=== PATIENT | female | born 1975 | race Asian ===

== ENCOUNTER → 2020-12-01 | Day surgery (SDC) | payer BC ==
[2020-12-01] VITALS (9 sets, daily range): BP systolic 128–147; BP diastolic 69–92
[~2020-12-01] VITALS: Ht 157.5 cm; Wt 58.1 kg
[~2020-12-01] MED LIST: BSS 15ml BTL ONE; BSS 500ml btl ONE; Bupivacaine 0.75% 30ml vial INJ ONE; Cyclopentolate 2% Opth Sol LEFT EYE ONE; EPINEPHrine 1mg/1ml Amp ONE; Goniotaire 2.5% Opth Soln - 15ml ONE; Hyaluronidase 150 units/ml vial ONE; LR 1000ml ONE; Lidocaine 1% MPF 10mg/ml 5ml ONE; Lidocaine 4% Amp 5ml ONE; Metoclopramide 10mg/2ml Inj IVP PRN; Metoclopramide 10mg/2ml Inj ONE; Midazolam 2mg/2ml Inj ONE; NS Irrig 1000ml ONE; Phenylephrine 2.5% Op 2ml Soln LEFT EYE ONE; Povidone-Iodine 5% opth solution ONE; Sterile Water Irrig 1000ml IRRIG ONE; Tetracaine 0.5% Opth 4ml Soln ONE; Tropicamide 1% Opth 15ml Soln LEFT EYE ONE; Vigamox Opth Soln 3ml LEFT EYE ONE; fentaNYL 100 mcg/2 mL IV ONE; fentaNYL 100 mcg/2 mL IV PRN
[2020-12-01 15:30] LABS: APPEARANCE,URINE CLEAR; BILIRUBIN, URINE NEGATIVE (NEGATIVE); COLOR,URINE PALE YELLOW; GLUCOSE, URINE (UA) NEGATIVE (NEGATIVE); KETONES,URINE NEGATIVE (NEGATIVE); LEUKOCYTE ESTERASE ,URINE 1+ (NEGATIVE); NITRITE,URINE NEGATIVE (NEGATIVE); PH,URINE 6 (4.5-8.0); PROTEIN,URINE NEGATIVE (NEGATIVE); UROBILINOGEN,URINE NORMAL MG/DL (0.0-1.0)
[2020-12-01 15:34] LABS: BASOPHILS % (AUTO) 1.1 % (0.0-2.0); EOSINOPHILS % (AUTO) 0.7 % (0.0-3.0); HEMATOCRIT 38.9 % (37.0-47.0); HEMOGLOBIN 12.4 G/DL (12.0-16.0); LYMPHOCYTES % (AUTO) 26.4 % (20.0-45.0); MEAN CORPUSCULAR VOLUME 62 FL (80-99); MONOCYTES % (AUTO) 5.7 % (1.0-10.0); PLATELET COUNT 298 K/UL (150-450); RED BLOOD COUNT 6.32 M/UL (4.20-5.40); RED CELL DISTRIBUTION WIDTH 15.4 % (11.6-14.8); WHITE BLOOD COUNT 9.2 K/UL (4.8-10.8)
[2020-12-01 15:40] LABS: ANION GAP 9 mmol/L (5-15); BLOOD UREA NITROGEN 12 mg/dL (7-18); CALCIUM 8.5 MG/DL (8.5-10.1); CARBON DIOXIDE 26 MMOL/L (21-32); CHLORIDE 101 MMOL/L (98-107); CREATININE 0.6 MG/DL (0.55-1.30); POTASSIUM 3.2 MMOL/L (3.5-5.1); SODIUM 136 MMOL/L (136-145)
--- NOTE | 2020-12-01 15:40 | NUR ---
ED Nurse Note: Patient walked into ED after being referred by for retinal surgery, patient reports of seeing an opaque figure at around 1200pm today. patient is alert and oriented x4, does not complain of pain at this time. last meal was around 8am earlier today.
[2020-12-01 15:45] LABS: ALANINE AMINOTRANSFERASE 21 U/L (12-78); ALBUMIN 4.3 G/DL (3.4-5.0); ALKALINE PHOSPHATASE 92 U/L (46-116); ASPARTATE AMINO TRANSFERASE 14 U/L (15-37); BILIRUBIN,TOTAL 0.4 MG/DL (0.2-1.0); INR 0.9 (0.9-1.1)
--- NOTE | 2020-12-01 16:53 | Emergency Room Report ---
History of Present Illness General Chief Complaint: General Complaint Source: Patient Present Illness HPI 45-year-old female here for preoperative labs. Patient had a right retinal detachment yesterday and is due for surgery today. We were contacted by the boiler shop mechanic earlier today to simply start preoperative labs for surgery. Patient has no complaints at this time. Allergies: Coded Allergies: No Known Allergies (Unverified , 12/01/20) COVID-19 Screening Contact w/high risk pt: No Experienced COVID-19 symptoms?: No COVID-19 Testing performed PRINT SHOP MANAGER: No Patient History Last Menstrual Period: october 2020 Nursing Documentation-[facility] Past Medical History: No Stated History Review of Systems All Other Systems: negative except mentioned in HPI Physical Exam Vital Signs Date Time Temp Pulse Resp B/P (MAP) Pulse Ox O2 Delivery O2 Flow Rate FiO2 12/01/20 14:56 100.0 90 18 143/71 (95) 95 Room Air Sp02 EP Interpretation: reviewed, normal General Appearance: no apparent distress, alert, non-toxic Head: normocephalic, atraumatic Eyes: bilateral eye normal inspection, bilateral eye PERRL ENT: hearing grossly normal, normal pharynx, no angioedema, normal voice Neck: full range of motion, supple/symm/no masses Respiratory: chest non-tender, lungs clear, normal breath sounds, speaking full sentences Cardiovascular #1: regular rate, rhythm, no edema Cardiovascular #2: 2+ carotid (R), 2+ carotid (L), 2+ radial (R), 2+ radial (L), 2+ dorsalis pedis (R), 2+ dorsalis pedis (L) Gastrointestinal: normal bowel sounds, non tender, soft, non-distended, no guarding, no rebound Rectal: deferred Genitourinary: normal inspection, no CVA tenderness Musculoskeletal: back normal, normal range of motion, gait/station normal, non- tender Neurologic: alert, motor strength/tone normal, oriented x3, sensory intact, responsive, speech normal Psychiatric: judgement/insight normal, memory normal, mood/affect normal, no suicidal/homicidal ideation Lymphatic: no adenopathy Medical Decision Making Diagnostic Impression: Primary Impression: Encounter for generalized patient complaints ER Course Laboratory Tests Test 12/01/20 15:20 White Blood Count 9.2 K/UL (4.8-10.8) Red Blood Count 6.32 M/UL (4.20-5.40) H Hemoglobin 12.4 G/DL (12.0-16.0) Hematocrit 38.9 % (37.0-47.0) Mean Corpuscular Volume 62 FL (80-99) L Mean Corpuscular Hemoglobin 19.6 PG (27.0-31.0) L Mean Corpuscular Hemoglobin Concent 31.8 G/DL (32.0-36.0) L Red Cell Distribution Width 15.4 % (11.6-14.8) H Platelet Count 298 K/UL (150-450) Mean Platelet Volume 7.1 FL (6.5-10.1) Neutrophils (%) (Auto) 66.0 % (45.0-75.0) Lymphocytes (%) (Auto) 26.4 % (20.0-45.0) Monocytes (%) (Auto) 5.7 % (1.0-10.0) Eosinophils (%) (Auto) 0.7 % (0.0-3.0) Basophils (%) (Auto) 1.1 % (0.0-2.0) Prothrombin Time 10.1 SEC (9.30-11.50) Prothrombin Time INR 0.9 (0.9-1.1) Activated Partial Thromboplast Time 27 SEC (23-33) Urine Color Pale yellow Urine Appearance Clear Urine pH 6 (4.5-8.0) Urine Specific [place] 1.010 (1.005-1.035) Urine Protein Negative (NEGATIVE) Urine Glucose (UA) Negative (NEGATIVE) Urine Ketones Negative (NEGATIVE) Urine Blood Negative (NEGATIVE) Urine Nitrite Negative (NEGATIVE) Urine Bilirubin Negative (NEGATIVE) Urine Urobilinogen Normal MG/DL (0.0-1.0) Urine Leukocyte Esterase 1+ (NEGATIVE) H Urine RBC 0-2 /HPF (0 - 2) Urine WBC 0-2 /HPF (0 - 2) Urine Squamous Epithelial Cells Occasional /LPF Urine Bacteria Occasional /HPF (NONE) Urine HCG, Qualitative Negative (NEGATIVE) Sodium Level 136 MMOL/L (136-145) Potassium Level 3.2 MMOL/L (3.5-5.1) L Chloride Level 101 MMOL/L (98-107) Carbon Dioxide Level 26 MMOL/L (21-32) Anion Gap 9 mmol/L (5-15) Blood Urea Nitrogen 12 mg/dL (7-18) Creatinine 0.6 MG/DL (0.55-1.30) Estimated Glomerular Filtration Rate > 60 mL/min (>60) Glucose Level 106 MG/DL (74-106) Calcium Level 8.5 MG/DL (8.5-10.1) Total Bilirubin 0.4 MG/DL (0.2-1.0) Aspartate Amino Transferase (AST) 14 U/L (15-37) L Alanine Aminotransferase (ALT) 21 U/L (12-78) Alkaline Phosphatase 92 U/L (46-116) Total Protein 8.6 G/DL (6.4-8.2) H Albumin 4.3 G/DL (3.4-5.0) Globulin 4.3 g/dL Albumin/Globulin Ratio 1.0 (1.0-2.7) Microbiology Date/Time Source Procedure Growth Status 12/01/20 15:20 Nasopharynx SARS-CoV-2 RdRp Gene Assay - Final Complete 45-year-old female here for preoperative labs before retinal detachment repair. The patient has no complaints at this time. Labs were unremarkable. Patient will be brought directly to surgery. Last Vital Signs Date Time Temp Pulse Resp B/P (MAP) Pulse Ox O2 Delivery O2 Flow Rate FiO2 12/01/20 15:20 90 18 Room Air 12/01/20 15:20 100.0 132/70 95 Scripts No Active Prescriptions or Reported Meds Referrals: NON PHYSICIAN (PCP) Lazaro Dykes M.D. Dec 01, 2020 16:53
--- NOTE | 2020-12-01 17:05 | NUR ---
TRANSFER TO FLOOR: Patient transferred to Surgery as ordered, per report given to CHAD Cason
--- NOTE | 2020-12-01 17:22 | Pre-Procedure Note/Attestation ---
Pre-Procedure Note/Attestation Complete Prior to Procedure Planned Procedure: left Procedure Narrative: Pars plana vitrectomy with scleral buckle, laser, gas OS Indications for Procedure Pre-Operative Diagnosis: Retinal detachment, rhegmatogenous, OS Attestation I attest that I discussed the nature of the procedure; its benefits; risks and complications; and alternatives (and the risks and benefits of such alternatives), prior to the procedure, with the patient (or the patient's legal patient representative). I attest that, if there was a reasonable possibility of needing a blood transfusion, the patient (or the patient's legal patient representative) was given the [facility] standardized written summary, pursuant to the [place] Blood Safety Act ([place] Health and Safety Code # 1645, as amended). I attest that I re-evaluated the patient just prior to the surgery and that there has been no change in the patient's H&P, except as documented below: Toan Mata MD Dec 01, 2020 17:22
--- NOTE | 2020-12-01 18:48 | Anethesia Preoperative Eval ---
Anesthesia Pre-op PMH/ROS General Date of Evaluation: Dec 01, 2020 Time of Evaluation: 17:00 Anesthesiologist: riky ASA Score: ASA 1 Mallampati Score Class I : Soft palate, uvula, fauces, pillars visible Class II: Soft palate, uvula, fauces visible Class III: Soft palate, base of uvula visible Class IV: Only hard plate visible Mallampati Classification: Class II Surgeon: Diana Diagnosis: Retinal Detachment Surgical Procedure: Vitrectomy left eye Anesthesia History: none Family History: no anesthesia problems Allergies: Coded Allergies: No Known Allergies (Unverified , 12/01/20) Medications: see eMAR Patient NPO?: Yes NPO Date: Dec 01, 2020 NPO Time: 09:00 Past Medical History Cardiovascular: Denies: HTN, CAD, DE, valve dz, arrhythmia, other Pulmonary: Denies: asthma, COPD, NIMISHA, other Gastrointestinal/Genitourinary: Denies: GERD, CRI, ESRD, other Neurologic/Psychiatric: Denies: dementia, CVA, depression/anxiety, TIA, other Endocrine: Denies: DM, hypothyroidism, steroids, other HEENT: Denies: cataract (L), cataract (R), glaucoma, L[place] (L), LEVELOCK (R), other Hematology/Immune: Denies: anemia, DVT, bleeding disorder, other Musculoskeletal/Integumentary: Denies: OA, RA, DJD, DDD, edema, other PSxH Narrative: uterus Anesthesia Pre-op Phys. Exam Physician Exam Last Vital Signs Date Time Temp Pulse Resp B/P (MAP) Pulse Ox O2 Delivery O2 Flow Rate FiO2 12/01/20 17:05 98.9 82 18 125/73 95 Room Air Constitutional: NAD Neurologic: CN 2-12 intact Cardiovascular: RRR Respiratory: CTA Gastrointestinal: S/NT/ND Airway Exam Mallampati Classification 2 Mallampati Score: Class II MO: full ROM: full Dentures: no upper, no lower Anesthesia Pre-op A/P Labs Hematology Test 12/01/20 15:20 White Blood Count 9.2 K/UL (4.8-10.8) Red Blood Count 6.32 M/UL (4.20-5.40) H Hemoglobin 12.4 G/DL (12.0-16.0) Hematocrit 38.9 % (37.0-47.0) Mean Corpuscular Volume 62 FL (80-99) L Mean Corpuscular Hemoglobin 19.6 PG (27.0-31.0) L Mean Corpuscular Hemoglobin Concent 31.8 G/DL (32.0-36.0) L Red Cell Distribution Width 15.4 % (11.6-14.8) H Platelet Count 298 K/UL (150-450) Mean Platelet Volume 7.1 FL (6.5-10.1) Neutrophils (%) (Auto) 66.0 % (45.0-75.0) Lymphocytes (%) (Auto) 26.4 % (20.0-45.0) Monocytes (%) (Auto) 5.7 % (1.0-10.0) Eosinophils (%) (Auto) 0.7 % (0.0-3.0) Basophils (%) (Auto) 1.1 % (0.0-2.0) Coagulation Test 12/01/20 15:20 Prothrombin Time 10.1 SEC (9.30-11.50) Prothromb Time International Ratio 0.9 (0.9-1.1) Activated Partial Thromboplast Time 27 SEC (23-33) Chemistry Test 12/01/20 15:20 Sodium Level 136 MMOL/L (136-145) Potassium Level 3.2 MMOL/L (3.5-5.1) L Chloride Level 101 MMOL/L (98-107) Carbon Dioxide Level 26 MMOL/L (21-32) Anion Gap 9 mmol/L (5-15) Blood Urea Nitrogen 12 mg/dL (7-18) Creatinine 0.6 MG/DL (0.55-1.30) Estimat Glomerular Filtration Rate > 60 mL/min (>60) Glucose Level 106 MG/DL (74-106) Calcium Level 8.5 MG/DL (8.5-10.1) Total Bilirubin 0.4 MG/DL (0.2-1.0) Aspartate Amino Transf (AST/SGOT) 14 U/L (15-37) L Alanine Aminotransferase (ALT/SGPT) 21 U/L (12-78) Alkaline Phosphatase 92 U/L (46-116) Total Protein 8.6 G/DL (6.4-8.2) H Albumin 4.3 G/DL (3.4-5.0) Globulin 4.3 g/dL Albumin/Globulin Ratio 1.0 (1.0-2.7) Urine Test Test 12/01/20 15:20 Urine HCG, Qualitative Negative (NEGATIVE) Studies Pre-op Studies: EKG - sr Risk Assessment & Plan Assessment: denies changes; covid neg Plan: mac Status Change Before Surgery: No Pre-Antibiotics Drug: none Yumiko Márquez CRNA Dec 01, 2020 18:48
--- NOTE | 2020-12-01 18:59 | Brief Operative Note ---
Immediate Post Operative Note Operative Note Pre-op Diagnosis: Retinal detachment, rhegmatogenous, OS Procedure: pars plana vitrectomy with scleral buckle OS Post-op Diagnosis: Retinal detachment OS Surgeon: Esperanza Grit Blaster: Robert Anesthesia: general Specimen: none Complications: none Condition: stable Fluids: na Estimated Blood Loss: none Drains: none Implant(s) used?: Yes Toan Mata MD Dec 01, 2020 18:59
--- NOTE | 2020-12-01 19:09 | Immediate Post-Op Evaluation ---
Immediate Post-Op Evalulation Immediate Post-Op Evalulation Procedure: left eye vitrectomy Date of Evaluation: Dec 01, 2020 Time of Evaluation: 19:08 IV Fluids: 500 Blood Pressure Systolic: 131 Blood Pressure Diastolic: 60 Pulse Rate: 86 Respiratory Rate: 14 O2 Sat by Pulse Oximetry: 99 Temperature (Fahrenheit): 98.1 Nausea: No Vomiting: No Complications none Patient Status: awake, reacts, patent Hydration Status: adequate Drug: none HaleyriYumiko carlson CRNA Dec 01, 2020 19:09
--- NOTE | 2020-12-01 19:16 | 48 Hour Post Anesthesia Eval ---
Post Anesthesia Evaluation Procedure: left eye vitrectomy Date of Evaluation: Dec 01, 2020 Time of Evaluation: 19:16 Blood Pressure Systolic: 140 0: 90 Pulse Rate: 83 Respiratory Rate: 14 Temperature (Fahrenheit): 98.1 O2 Sat by Pulse Oximetry: 98 Airway: patent Nausea: No Vomiting: No Hydration Status: adequate Cardiopulmonary Status: stable Mental Status/LOC: patient returned to baseline Post-Anesthesia Complications: none Follow-up care needed: N/A Yumiko Márquez CRNA Dec 01, 2020 19:16
--- NOTE | 2020-12-01 22:00 | Pre-op HX & Phy Repo 2 SIG ---
DATE OF ADMISSION: 12/01/2020 DATE OF SURGERY: Surgery is scheduled for 12/01/2020. HISTORY OF PRESENT ILLNESS: The patient is a pleasant 45-year-old woman who I initially evaluated on 12/01/2020. She has a history of retinal detachment, status post laser in her right eye. She noted decreased vision occurring yesterday and this morning. She was noted to have a rhegmatogenous retinal detachment in the left eye. She is now being admitted for pars plana vitrectomy and scleral buckle to her left eye. PAST MEDICAL HISTORY: Otherwise unremarkable. PAST SURGICAL HISTORY: Unremarkable. MEDICATIONS: She is on no medications. ALLERGIES: She has no known drug allergies. FAMILY HISTORY: Remarkable for hypertension, diabetes, and heart disease in the mother and hypertension in the father. SOCIAL HISTORY: Remarkable for no tobacco, alcohol, or substance abuse. REVIEW OF SYSTEMS: A 10-point review of systems was done and is unremarkable other than the eye findings. PHYSICAL EXAMINATION: Visual acuity is 20/20- in the right, 20/30+ in the left eye. 15 in the right eye, 40 in the left eye by Oseas-Pen. General eye examination demonstrates the conjunctiva is acquired. The corneas are clear. The anterior chambers are quiet. There is trace nuclear sclerosis to the lens in OU. Extraocular motility is intact. Visual field is full to finger counting in the in the left eye. Dilated vitreoretinal examination in the right eye demonstrates clear media vitreous detachment with vitreous opacity is noted. The cup-to-disc ratio is 0.2. There is some nicking of the posterior pole vessels. Examination of the retinal periphery demonstrates a horseshoe tear surrounding laser 8 o'clock and other areas of laser photocoagulation scarring temporally. In the left eye, the cornea outside of the media is clear. However, the cup-to-disc ratio is 0.2. There is posterior vitreous detachment present. There is some nicking of the posterior pole vessels. There is a rhegmatogenous detachment present from 1 to 5 o'clock with a horseshoe tear at 2 o'clock. Lattice degeneration is also noted inferior and superior. demonstrates fovea split with subretinal fluid demonstrates subretinal fluid without a mass. IMPRESSION: Rhegmatogenous retinal detachment, left eye, macula threatened. PLAN: I discussed my findings with the patient. After detailed discussion of risks, benefits and alternatives, we will recommend vitrectomy and scleral buckle. Complications up to including loss of vision and loss of eye were discussed. She understands and agrees to the surgery. Toan Mata M.D. DR: TESS JOB#: [id number] CC:
--- NOTE | 2020-12-02 00:45 | Operative Note - Dictated ---
DATE OF OPERATION: 12/01/2020 PREOPERATIVE DIAGNOSIS: Rhegmatogenous retinal detachment, left eye. POSTOPERATIVE DIAGNOSIS: Rhegmatogenous retinal detachment, left eye. PROCEDURE: Pars plana vitrectomy with scleral buckle, retinal reattachment under gas with endolaser, left eye. SURGEON: Toan Mata M.D. ASSISTANT FINANCE DIRECTOR: Daquan Jones M.D. ANESTHESIA: General with additional 4% lidocaine injected subtenons during the case. COMPLICATIONS: None. DESCRIPTION OF PROCEDURE: After informed consent was obtained, clearance from Anesthesia, and identification by Dr. Mata, the patient was brought into the operating room where general anesthesia was induced. At this point, the left eye was prepped and draped in usual sterile ophthalmic fashion. A wire lid speculum was placed in conjunctival fornices and a 360-degree peritomy was then created using Richy scissors and 0.3 forceps. The inferior rectus muscle was then isolated using [place] muscle hook and bridled using 2-0 silk tie. With a [place] muscle hook, in a similar fashion, the lateral, medial, and superior rectus muscles were all isolated and bridled. The 5-0 [place] silk was then placed in each of the quadrants of the anterior aspect of the suture at the muscle insertion andthe posterior part of the suture 9 mm back. A #287 scleral buckle was placed in antibiotic solution. A 3-port 23-gauge vitrectomy was created in a pseudophakic patient. Trocars and cannulas were placed 4 mm posterior to the surgical limbus supratemporally, supranasally, and inferotemporally. Once the infusion cannula was noted to be inside the eye, infusion was turned on. The cortical vitreous was then removed from the posterior surface of the lens to the surface of the retina and the vitreous was excised to the vitreous base. The retinal was detached preoperatively with some atrophic holes noted at the 12 and 1 o'clock. No other holes or tears were noted. At this point, the microscope was removed from the surgical field and #287 scleral buckle was placed into each of the sutures and into each of the muscle and tied to itself just below the lateral rectus muscle. At this point, the microscope was pulled back into the surgical field. Additional vitreous base was performed using the osteotome with the floor covering printer assistant providing scleral depression. At this point, Perfluoron was injected into the eye and the retina flattened nicely. Endolaser was then applied around the superior margin of the buckle with power of 400 mW and exposure time of 0.05 seconds. Good uptake was noted after each application. The operation was then concluded. Fluid gas exchange was performed. The retina remained detached. The air was exchanged for a 18% mixture of SF6 gas. The conjunctiva was closed using 6-0 plain suture. Subconjunctival cefazolin, Decadron, and topical atropine drops were placed. The eye was patched and shielded. The patient left the operating room in stable condition. Toan Mata M.D. DR: MEY JOB#: [id number] CC: ABBIE
== END | disposition home or self-care (01) ==
LOC: EMR 15:25 → EDBEDREQ 17:04 → SUR 17:16
DX: H33.002 Unspecified retinal detachment with retinal break, left eye (principal)
CPT/HCPCS: 36415; 67108; 80053; 81003; 81025; 85025; 85610; 85730; 94003; 99285; J0171; J0690; J1100; J2250; J2405; J2704; J2765; J3010; J3470; J3490; J7120; U0002; 94150